=== PATIENT | female | born 1965 | race Caucasian/White ===

== ENCOUNTER → 2016-07-02 | Outpatient (CLI) | payer OTHER ==
[~2016-07-02] MED LIST: AMBI12.5 PO; CALCTAB33 PO; CYAN1000P SQ; ESTR.025T TOPICAL; LORA-392 PO; MAGICADU2 SWISH-SWAL; METH5 PO; MULT-65 PO; PROG1CAP20 PO; PROM25TA5 PO; PROT40TA PO; RELP40TA PO; SERO25TA PO; TEDU5KIT; TOFA5TAB PO; TRAM50TA PO; VALT1TAB PO; VENTAER INH; VYVA30CA5 PO; XARE20TA PO
[2016-07-02 13:05] LABS: AUTOMATED NEUTROPHIL # 2.8 TH/MM3 (1.8-7.7); EOSINOPHIL # 0.1 TH/MM3 (0-0.4); EOSINOPHIL % 1.8 % (0.0-4.0); HEMATOCRIT 39.3 % (35.0-46.0); HEMO FLAGS DIFF FINAL; LYMPH % 23.6 % (9.0-44.0); MEAN CELL VOLUME 91.6 FL (80.0-100.0); MEAN CORPUSCULAR HEMOGLOBIN 30.7 PG (27.0-34.0); MEAN CORPUSCULAR HGB CONC 33.5 % (32.0-36.0); MONO % 10.1 % (0.0-8.0); NEUT % 63.5 % (16.0-70.0); PLATELET COUNT 287 TH/MM3 (150-450); RED BLOOD COUNT 4.28 MIL/MM3 (4.00-5.30); RED CELL DISTRIBUTION WIDTH 13.8 % (11.6-17.2); WHITE BLOOD COUNT 4.4 TH/MM3 (4.0-11.0)
[2016-07-02 13:07] LABS: ALT (GPT) 15 U/L (10-53); ANION GAP 7 MEQ/L (5-15); AST (GOT) 11 U/L (15-37); BLOOD UREA NITROGEN 15 MG/DL (7-18); CHLORIDE 107 MEQ/L (98-107); GLOMERULAR FILTRATION RATE 81 ML/MIN (>89); GLUCOSE,FASTING 128 MG/DL (74-99); POTASSIUM 3.9 MEQ/L (3.5-5.1); SODIUM (NA) 140 MEQ/L (136-145)
[2016-07-02 13:17] LABS: FREE T3 4.92 PG/ML (2.18-3.98); FREE T4 1.53 NG/DL (0.76-1.46)
[2016-07-02 13:30] LABS: WESTERGREN SEDIMENTATION RATE 5 mm/hr (0-30)
[2016-07-02 13:32] LABS: ALKALINE PHOSPHATASE 123 U/L (45-117); LDL CHOLESTEROL 90 MG/DL (0-99); TOTAL BILIRUBIN ADULT 0.4 MG/DL (0.2-1.0)
== END ==
LOC: CLAB 12:06
DX: K50.818 Crohn's disease of both small and large intestine with other complication (principal); R19.7 Diarrhea, unspecified; E55.9 Vitamin D deficiency, unspecified; M85.80 Other specified disorders of bone density and structure, unspecified site; E53.8 Deficiency of other specified B group vitamins; K91.2 Postsurgical malabsorption, not elsewhere classified; K13.79 Other lesions of oral mucosa; R10.33 Periumbilical pain; Z92.25 Personal history of immunosuppression therapy; Z79.52 Long term (current) use of systemic steroids
CPT/HCPCS: 36415; 80053; 80061; 82306; 82607; 82746; 84439; 84443; 84481; 85025; 85652; 86140

== ENCOUNTER → 2016-08-13 | Outpatient (CLI) | payer OTHER ==
[2016-08-13 13:04] LABS: GAMMA GT 14 U/L (5-55)
[2016-08-13 13:06] LABS: ALKALINE PHOSPHATASE 129 U/L (45-117)
[2016-08-13 13:12] LABS: FREE T3 2.98 PG/ML (2.18-3.98); FREE T4 1.02 NG/DL (0.76-1.46)
== END ==
LOC: CLAB 12:03
DX: R74.8 Abnormal levels of other serum enzymes (principal); E05.90 Thyrotoxicosis, unspecified without thyrotoxic crisis or storm
CPT/HCPCS: 36415; 82533; 82977; 84075; 84439; 84443; 84445; 84481

== ENCOUNTER → 2016-10-15 | Outpatient (CLI) | payer OTHER ==
[~2016-10-15] MED LIST changes: -LORA-392 PO
[2016-10-15 13:08] LABS: FREE T3 2.84 PG/ML (2.18-3.98); FREE T4 1.07 NG/DL (0.76-1.46)
== END ==
LOC: CLAB 12:09
DX: E05.90 Thyrotoxicosis, unspecified without thyrotoxic crisis or storm (principal)
CPT/HCPCS: 36415; 84439; 84443; 84481

== ENCOUNTER → 2016-12-05 | Outpatient (CLI) | payer OTHER ==
[2016-12-05 12:28] LABS: AUTOMATED NEUTROPHIL # 4.5 TH/MM3 (1.8-7.7); BASOPHIL # 0.1 TH/MM3 (0-0.2); BASOPHIL % 1.2 % (0.0-2.0); EOSINOPHIL # 0.1 TH/MM3 (0-0.4); EOSINOPHIL % 0.8 % (0.0-4.0); HEMATOCRIT 37.7 % (35.0-46.0); HEMO FLAGS DIFF FINAL; LYMPH % 20.4 % (9.0-44.0); LYMPHOCYTE # 1.4 TH/MM3 (1.0-4.8); MEAN CELL VOLUME 97.6 FL (80.0-100.0); MEAN CORPUSCULAR HEMOGLOBIN 31.2 PG (27.0-34.0); MONO % 10.4 % (0.0-8.0); NEUT % 67.2 % (16.0-70.0); PLATELET COUNT 317 TH/MM3 (150-450); RED BLOOD COUNT 3.86 MIL/MM3 (4.00-5.30); RED CELL DISTRIBUTION WIDTH 14.4 % (11.6-17.2); WHITE BLOOD COUNT 6.7 TH/MM3 (4.0-11.0)
[2016-12-05 14:26] LABS: FREE T3 2.58 PG/ML (2.18-3.98); FREE T4 0.9 NG/DL (0.76-1.46)
[2016-12-05 14:46] LABS: ALKALINE PHOSPHATASE 88 U/L (45-117); ALT (GPT) 17 U/L (10-53); TOTAL BILIRUBIN ADULT 0.3 MG/DL (0.2-1.0)
[2016-12-05 14:50] LABS: ANION GAP 6 MEQ/L (5-15); AST (GOT) 20 U/L (15-37); BICARBONATE 26.2 MEQ/L (21.0-32.0); BLOOD UREA NITROGEN 12 MG/DL (7-18); CHLORIDE 106 MEQ/L (98-107); GLOMERULAR FILTRATION RATE 86 ML/MIN (>89); GLUCOSE,FASTING 77 MG/DL (74-99); POTASSIUM 4.4 MEQ/L (3.5-5.1); SODIUM (NA) 138 MEQ/L (136-145)
== END ==
LOC: CLAB 11:57
DX: E55.9 Vitamin D deficiency, unspecified (principal); R10.33 Periumbilical pain; E05.90 Thyrotoxicosis, unspecified without thyrotoxic crisis or storm; K50.818 Crohn's disease of both small and large intestine with other complication; E53.8 Deficiency of other specified B group vitamins; K91.2 Postsurgical malabsorption, not elsewhere classified; K13.79 Other lesions of oral mucosa; Z92.25 Personal history of immunosuppression therapy; Z79.52 Long term (current) use of systemic steroids
CPT/HCPCS: 36415; 80053; 84439; 84443; 84481; 85025

== ENCOUNTER → 2017-01-14 | Outpatient (CLI) | payer OTHER ==
[2017-01-14 12:15] LABS: FREE T3 4.34 PG/ML (2.18-3.98); FREE T4 1.42 NG/DL (0.76-1.46)
== END ==
LOC: CLAB 11:13
DX: E05.91 Thyrotoxicosis, unspecified with thyrotoxic crisis or storm (principal)
CPT/HCPCS: 36415; 84439; 84443; 84481

== ENCOUNTER → 2017-06-25 | Outpatient (CLI) | payer OTHER ==
[~2017-06-25] MED LIST changes: +COMB.05D5 T-DERMAL; -ESTR.025T TOPICAL; +LEXA5TAB PO; +LORA-392 PO; +METHY5 PO; -PROG1CAP20 PO; +PROP10TA6 PO; -TEDU5KIT; -VYVA30CA5 PO
[2017-06-25 15:40] LABS: AUTOMATED NEUTROPHIL # 3.1 TH/MM3 (1.8-7.7); BASOPHIL % 0.3 % (0.0-2.0); EOSINOPHIL # 0.1 TH/MM3 (0-0.4); EOSINOPHIL % 2.4 % (0.0-4.0); HEMATOCRIT 39.3 % (35.0-46.0); HEMOGLOBIN 13.2 GM/DL (11.6-15.3); LYMPH % 21.6 % (9.0-44.0); LYMPHOCYTE # 1.1 TH/MM3 (1.0-4.8); MEAN CELL VOLUME 96.3 FL (80.0-100.0); MEAN CORPUSCULAR HEMOGLOBIN 32.3 PG (27.0-34.0); MEAN CORPUSCULAR HGB CONC 33.5 % (32.0-36.0); MEAN PLATELET VOLUME 8.3 FL (7.0-11.0); MONO % 12.2 % (0.0-8.0); MONOCYTE # 0.6 TH/MM3 (0-0.9); NEUT % 63.5 % (16.0-70.0); PLATELET COUNT 288 TH/MM3 (150-450); RED BLOOD COUNT 4.08 MIL/MM3 (4.00-5.30); WHITE BLOOD COUNT 4.9 TH/MM3 (4.0-11.0)
[2017-06-25 16:11] LABS: ALT (GPT) 17 U/L (10-53)
[2017-06-25 16:12] LABS: ALBUMIN 3.5 GM/DL (3.4-5.0); AST (GOT) 19 U/L (15-37); BICARBONATE 28.4 MEQ/L (21.0-32.0); BLOOD UREA NITROGEN 11 MG/DL (7-18); CALCIUM 9.1 MG/DL (8.5-10.1); CHLORIDE 107 MEQ/L (98-107); CREATININE 0.59 MG/DL (0.50-1.00); GLOMERULAR FILTRATION RATE 107 ML/MIN (>89); GLUCOSE,FASTING 82 MG/DL (74-99); SODIUM (NA) 140 MEQ/L (136-145)
[2017-06-25 16:13] LABS: ALKALINE PHOSPHATASE 77 U/L (45-117); TOTAL BILIRUBIN ADULT 0.4 MG/DL (0.2-1.0); TOTAL PROTEIN 6.7 GM/DL (6.4-8.2)
[2017-06-25 16:16] LABS: FREE T3 2.98 PG/ML (2.18-3.98); FREE T4 0.93 NG/DL (0.76-1.46)
== END ==
LOC: CLAB 15:07
DX: K91.2 Postsurgical malabsorption, not elsewhere classified (principal); M85.80 Other specified disorders of bone density and structure, unspecified site; D50.9 Iron deficiency anemia, unspecified; K50.819 Crohn's disease of both small and large intestine with unspecified complications; R53.83 Other fatigue; E06.3 Autoimmune thyroiditis
CPT/HCPCS: 36415; 80053; 84439; 84443; 84481; 85025

== ENCOUNTER → 2017-08-13 | Day surgery (SDC) | payer OTHER ==
[~2017-08-13] MED LIST changes: +ALEV220T14 PO; +LIDOCAINE HCL 1% PF 30 ML VIAL INFIL ONE; +MEPERIDINE HCL 25 MG/ML VIAL IV ONE; +PROPOFOL 200 MG/20 ML AMP IV ONE; +SODIUM CHLORIDE 0.9% 10 ML VIAL ONE; +TRIAMCINOLONE ACETONIDE 40 MG/ML VIAL NERV BLOCK ONE; +diphenhydrAMINE HCL 50 MG/ML VIAL IV ONE
--- NOTE | 2017-08-13 09:07 | M6 ---
cc: Enrique Srinivasan MD DATE: 08/13/2017 DATE OF : 1965 PROCEDURE: T1-T2 interlaminar epidural steroid injection. History and physical was completed and signed. Consent was signed. Procedure site was marked. Medications were listed and reconciled. Pain score was recorded. Allergies were noted. Time out was taken. Fluoroscopy time was recorded where applicable. Sedation was administered or directed by Dr. Srinivasan. The patient was given oxygen. The patient was monitored by a registered nurse. Total procedure time was greater than 15 minutes. PROCEDURE NOTE: IV was started. Blood pressure cuff, pulse oximeter and EKG were applied. The patient was placed in the prone position on a Chris table, sedated with small amounts of Propofol titrated to effect. She was also given a small amount of Demerol and Benadryl. Vital signs were monitored and remained stable throughout the procedure. The cervical area was prepped with alcohol and 10% Betadine solution and draped with sterile drapes. Fluoroscopy was used to visualize the T1-T2 interlaminar space. The skin was infiltrated with 1% Xylocaine, using a 27-gauge needle. Then, a 3-1/2 inch, 18-gauge Jones needle was advanced using fluoroscopic guidance and the loss of resistance technique into the epidural space at T1-T2, slightly to the right of the midline. There was negative aspiration for blood or any other type of fluid. The patient then was given 6 mL of normal saline and 60 mg of Kenalog with the injectate traveling in a cephalad direction up to C6. MD HALIMA Sim/KELLY , 08:36 AM , 09:06 AM
== END | disposition home or self-care (01) ==
LOC: PHSDC 07:14
PROVIDERS: ATTEND Pain Medicine Interventional Pain Medicine
DX: R51 Headache (principal); M79.621 Pain in right upper arm
CPT/HCPCS: 62321; 99152; J1200; J2175; J3301

== ENCOUNTER → 2017-10-17 | Outpatient (CLI) | payer OTHER ==
[~2017-10-17] MED LIST changes: +GABA300C5 PO; -LIDOCAINE HCL 1% PF 30 ML VIAL INFIL ONE; -MAGICADU2 SWISH-SWAL; -MEPERIDINE HCL 25 MG/ML VIAL IV ONE; -PROPOFOL 200 MG/20 ML AMP IV ONE; -SODIUM CHLORIDE 0.9% 10 ML VIAL ONE; -TRIAMCINOLONE ACETONIDE 40 MG/ML VIAL NERV BLOCK ONE; -diphenhydrAMINE HCL 50 MG/ML VIAL IV ONE
[2017-10-17 13:40] LABS: AUTOMATED NEUTROPHIL # 6.9 TH/MM3 (1.8-7.7); BASOPHIL % 0.2 % (0.0-2.0); EOSINOPHIL % 0.1 % (0.0-4.0); HEMATOCRIT 36.7 % (35.0-46.0); HEMOGLOBIN 12.7 GM/DL (11.6-15.3); LYMPH % 9.3 % (9.0-44.0); LYMPHOCYTE # 0.8 TH/MM3 (1.0-4.8); MEAN CELL VOLUME 96.4 FL (80.0-100.0); MEAN CORPUSCULAR HEMOGLOBIN 33.3 PG (27.0-34.0); MEAN CORPUSCULAR HGB CONC 34.5 % (32.0-36.0); MEAN PLATELET VOLUME 8.5 FL (7.0-11.0); MONO % 6.6 % (0.0-8.0); MONOCYTE # 0.5 TH/MM3 (0-0.9); NEUT % 83.8 % (16.0-70.0); PLATELET COUNT 318 TH/MM3 (150-450); RED BLOOD COUNT 3.81 MIL/MM3 (4.00-5.30); RED CELL DISTRIBUTION WIDTH 14.3 % (11.6-17.2); WHITE BLOOD COUNT 8.2 TH/MM3 (4.0-11.0)
[2017-10-17 13:57] LABS: AST (GOT) 13 U/L (15-37); BICARBONATE 26.9 MEQ/L (21.0-32.0); BLOOD UREA NITROGEN 18 MG/DL (7-18); CHLORIDE 104 MEQ/L (98-107); CREATININE 0.82 MG/DL (0.50-1.00); GLOMERULAR FILTRATION RATE 73 ML/MIN (>89); GLUCOSE,FASTING 91 MG/DL (74-99); SODIUM (NA) 140 MEQ/L (136-145)
[2017-10-17 14:06] LABS: % SATURATION IRON PROFILE 22.1 % (20-50); ALKALINE PHOSPHATASE 57 U/L (45-117); ALT (GPT) 19 U/L (10-53); FERRITIN 38 NG/ML (8-252); IRON (FE) 101 MCG/DL (50-170); TOTAL BILIRUBIN ADULT 0.3 MG/DL (0.2-1.0); TOTAL IRON BINDING CAPACITY 456 MCG/DL (250-450); TOTAL PROTEIN 6.9 GM/DL (6.4-8.2)
== END ==
LOC: CLAB 12:35
DX: K91.2 Postsurgical malabsorption, not elsewhere classified (principal); M85.80 Other specified disorders of bone density and structure, unspecified site; E06.3 Autoimmune thyroiditis; B37.0 Candidal stomatitis; D50.9 Iron deficiency anemia, unspecified
CPT/HCPCS: 36415; 80053; 82728; 83540; 83550; 84439; 84443; 85025; 86803